=== PATIENT | male | born 1975 ===

== ENCOUNTER 2019-07-05 15:24 | Emergency (ER) | payer SELFPAY ==
[2019-07-05 15:28] VITALS: BP 140/91; PULSE 83; RESP 16; TEMP 36.8; O2SAT 98; BMI 21.5
--- NOTE | 2019-07-05 15:36 | XR_ITS ---
WS: [id number] RIGHT THIRD FINGER 3 VIEW TECHNIQUE: PA, oblique and lateral. HISTORY: trauma; middle COMPARISON: None available. No fracture, dislocation or joint abnormality. Soft tissue injury distal finger but no fracture. No foreign body. XR/XR finger RT min 2V [id number] IMPRESSION: Soft tissue injury distal third finger.
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
[2019-07-05] MEDS: lidocaine 2% INJ 20 mL INJECTION (15:40)
[2019-07-05] MEDS: tetanus-diphtheria tox (adult) 0.5 mL SDV IM (16:05)
[2019-07-05 16:16] VITALS: BP 127/85; PULSE 73; RESP 15; O2SAT 98
== END 2019-07-05 16:16 | disposition home or self-care (01) ==
PROVIDERS: Emergency Provider Physician Assistant
DX: S61.312A Laceration without foreign body of right middle finger with damage to nail, initial encounter (principal); F17.210 Nicotine dependence, cigarettes, uncomplicated; Z23 Encounter for immunization; W94.0XXA Exposure to prolonged high air pressure, initial encounter
CPT/HCPCS: 12001; 12345; 73140; 90471; 90714; 99281; 99283; J2001